=== PATIENT | female | born 1990 | race Caucasian/White ===

== ENCOUNTER 2017-07-08 13:50 | Emergency (ER) | payer SELFPAY ==
[2017-07-08 14:39] VITALS: BP 116/70
--- NOTE | 2017-07-08 14:40 | RADIOLOGY REPORT (SQ) ---
EXAM DESCRIPTION: ANKLE LEFT COMPLETE COMPLETED DATE/TIME: 07/08/2017 2:33 pm REASON FOR STUDY: fall COMPARISON: None. NUMBER OF VIEWS: Three views. TECHNIQUE: AP, lateral, and oblique radiographic images acquired of the left ankle. LIMITATIONS: None. FINDINGS: MINERALIZATION: Normal. BONES: No acute fracture or dislocation. No worrisome bone lesions. JOINTS: No effusions. SOFT TISSUES: Lateral soft tissue swelling. OTHER: No other significant finding. IMPRESSION: Soft tissue swelling. No acute fracture. TECHNICAL DOCUMENTATION: JOB ID: [id number] [employer]- All Rights Reserved Reading location - IP/workstation name: [email or web address]
[2017-07-08] MEDS ORDERED: ACETAMINOPHEN 325 MG TABLET PO ONE (14:44)
--- NOTE | 2017-07-08 14:44 | ER Document Report ---
HPI - HPI Pain Level: 3 Context: Patient is a 26-year-old female presents emergency department the chief complaint of left ankle pain. Patient states that she is walking her dog lost her balance and rolled her ankle laterally. She denies any numbness, tingling or weakness. Has been able to ambulate on it. She did not take anything prior to arrival.Last menstrual period was last week - REPRODUCTIVE Reproductive: DENIES: : - MUSCULOSKELETAL Musculoskeletal: REPORTS: Extremity pain Past Medical History - Social History Smoking Status: Current Every Day Smoker Chew tobacco use (# tins/day): No Frequency of alcohol use: None Drug Abuse: None Family History: Reviewed & Not Pertinent Patient has suicidal ideation: No Patient has homicidal ideation: No Pulmonary Medical History: Reports: Hx Asthma Renal/ Medical History: Denies: Hx Peritoneal Dialysis Psychiatric Medical History: Reports: Hx Bipolar Disorder Past Surgical History: Reports: Hx Cholecystectomy, Hx Tubal Ligation Vertical Provider Document - CONSTITUTIONAL Agree With Documented VS: Yes Notes: PHYSICAL EXAM GENERAL: Alert, interacts well. EXTREMITIES: Moves all 4 extremities spontaneously. Equal strength bilaterally in the left lower extremity in comparison to the right full range of motion of left ankle minimal tenderness palpation over the left lateral malleolus no edema ,dorsalis pedis pulses 2/4 bilaterally. No cyanosis. NEUROLOGICAL: Alert and oriented x4. Normal speech. PSYCH: Normal affect, normal mood. SKIN: Warm, dry, normal turgor. No rashes or lesions noted. - INFECTION CONTROL TRAVEL OUTSIDE OF THE [place] IN LAST 30 DAYS: No Course - Re-evaluation Re-evalutation: 07/08/17 14:49 Patient 18-year-old female seen and examined, no acute distress afebrile. No evidence of a septic joint, gout flare, dislocation, or fracture on exam and imaging. Vitals wnl. At this time, I do not see an indication for labs or further imaging. Will discharge with conservative measures, return precautions, and follow-up recommendations. - Vital Signs Vital signs: Temp Pulse Resp BP Pulse Ox 98.7 F 90 16 116/70 98 07/08/17 14:37 07/08/17 14:37 07/08/17 14:37 07/08/17 14:37 07/08/17 14:37 Procedures - Immobilization Left Ankle Pre-Proc Neuro Vasc Exam: Normal Immobilizer type: Ahroon wrap, Crutches Performed by: PCT Post-Proc Neuro Vasc Exam: Normal, Unchanged from pre-exam Alignment checked and good: Yes Discharge - Discharge Clinical Impression: Left ankle injury Qualifiers: Encounter type: initial encounter Qualified Code(s): S99.912A - Unspecified injury of left ankle, initial encounter Condition: Good Disposition: HOME, SELF-CARE Instructions: Acetaminophen, Use of Crutches ([facility]), Use of [id number] Ibuprofen ([facility]), Ice & Elevation ([facility]), Sprained Ankle ([facility]) Referrals: FRANKIE UMAÑA MD [ACTIVE STAFF] - Follow up in 1 week
== END 2017-07-08 15:09 | disposition home or self-care (01) ==
LOC: ER 13:50
DX: S99.912A Unspecified injury of left ankle, initial encounter (principal); F17.200 Nicotine dependence, unspecified, uncomplicated; X50.0XXA Overexertion from strenuous movement or load, initial encounter; Y93.K1 Activity, walking an animal; Z90.49 Acquired absence of other specified parts of digestive tract; Z98.51 Tubal ligation status
CPT/HCPCS: 99283